=== PATIENT | female | born 1995 | race Caucasian/White ===

== ENCOUNTER → 2020-07-15 15:28 | Outpatient (BNVA) | payer SELFPAY | PROVIDERS: Visit Provider Nurse Practitioner Family | DX: D64.9 Anemia, unspecified (principal); R00.0 Tachycardia, unspecified; R53.83 Other fatigue; R20.0 Anesthesia of skin; R20.2 Paresthesia of skin | CPT/HCPCS: 80048; 82306; 82607; 83550; 84443; 85025 ==

== ENCOUNTER 2021-07-02 17:57 | Outpatient (CLI) | payer MEDICAID, SELFPAY ==
[2021-07-02 18:08] VITALS: BMI 26.9
[2021-07-02 18:13] VITALS: BP 119/78; PULSE 99; TEMP 36.3
== END 2021-07-02 18:45 | disposition home or self-care (01) ==
LOC: OPOB 17:57 → OBGYN 18:00
PROVIDERS: Visit Provider Family Medicine
DX: O26.899 Other specified pregnancy related conditions, unspecified trimester (principal); Z3A.00 Weeks of gestation of pregnancy not specified; N89.8 Other specified noninflammatory disorders of vagina
CPT/HCPCS: 59025; 83986; 99211

== ENCOUNTER 2021-07-09 02:21 | Inpatient (IN) | payer MEDICAID, SELFPAY ==
[2021-07-08 22:50] VITALS: RESP 16; BMI 26.4
[2021-07-08 23:03] VITALS: BP 139/88; PULSE 81
[2021-07-08 23:46] VITALS: BP 147/92; PULSE 71
[2021-07-09] VITALS (50 sets, daily range): BP systolic 97–215; BP diastolic 47–145; PULSE 60–97; RESP 15–17; TEMP 36.2–36.6; O2SAT 88–100; BMI 26.4
[2021-07-09] MEDS: ondansetron 2 mg/ML SDV 2 mL 4 MG IVP (02:53)
[2021-07-09] MEDS: dextrose 5%-lactated ringers 1,000 ML 125 ML IV (02:53)
[2021-07-09 03:00] LABS: Basophils # 0.1 10^3/uL (0.0-0.1); Basophils % 0.4 %; Eosinophils % 0.2 %; Hematocrit 35.3 % (37.0-47.0); Hemoglobin 11.8 g/dL (11.5-15.3); Lymphocytes # 2.9 10^3/uL (0.8-4.8); Lymphocytes % 22.8 %; Mean Corpuscular HGB Conc 33.4 g/dL (30.0-36.0); Mean Corpuscular Hemoglobin 28.5 pg (28.0-34.0); Mean Corpuscular Volume 85.3 fl (81-99); Mean Platelet Volume 12.8 fL (7.4-10.4); Monocytes # 0.8 10^3/uL (0.2-0.9); Monocytes % 6.2 %; Neutrophils % 69.8 %; Nucleated Red Blood Cells % 0 %; Platelet Count 196 10^3/cmm (130-400); Red Blood Count 4.14 10^6/uL (4.1-5.3); Red Cell Distribution Width 12.6 % (12.1-15.1); White Blood Count 12.6 10^3/uL (4.0-10.0)
[2021-07-09] MEDS: lactated ringers 1,000 ML 999 ML IV ×2 (06:15→08:49)
[2021-07-09] MEDS: oxytocin 30 UNIT/500 ML BAG IV (06:46)
--- NOTE | 2021-07-09 07:07 | PM.OPHPUD ---
Labor & Delivery H&P Update Date of Procedure: July 09, 2021 Date H&P Performed: 07/07/21 Admission Diagnosis: 25-year-old 2 para 1-0-0-1 at 38 weeks estimated gestational age arriving in active labor Planned procedure: Spontaneous vaginal delivery Other information: The patient is an otherwise healthy 25-year-old female who arrived to the hospital complaining of vaginal pressure and occasional contractions. After arriving to hospital she was found to have consistent contractions most of which she was not feeling, and was also making cervical change. Her has been otherwise a relatively unremarkable. Her blood type is O+. Antibody negative. She is rubella immune. She is GBS negative. Her glucose screen was negative. The remainder of her labs are within normal limits.
--- NOTE | 2021-07-09 07:18 | ANES.PREANE2 ---
Pre-Anesthetic Assessment Height/Weight: Height 1.65 m Weight 72.121 kg Temp Pulse Resp BP 97.4 F L 68 16 118/72 07/09/21 06:22 07/09/21 07:05 07/09/21 06:22 07/09/21 07:05 Preop Diagnosis: Planning of labor analgesia Labor epidural Familial anesthetic complications: None Was Beta Raf taken within 24 hours: N/A Was Clonidine taken within 24 hours: N/A Last intake: Full stomach Social No alcohol and No tobacco Exam alert, oriented x 3, clear to auscultation bilaterally and regular rate & rhythm Airway Submandibular: within normal limits Cervical ROM: within normal limits Mallampati: Class II Dentition: full History/ROS No significant history except as noted and No significant complaints Pulmonary Asthma (RAD) CV/HEM None reported None reported Hepatic None reported GI None reported Metabolic None reported Musc/skel None reported Neuropsych None reported Anesthetic Plan ASA status: 2 Anesthesia: Anesthesia Evaluation, Eval. for regional block, General and Regional (specify below) (Labor epidural) Other: I discussed with patient the risk and benefits of labor epidural including PDPH, hypotension, back pain/discomfort/bruising, catastrophic nerve injury including paralysis, abscess, hematoma, failed block, one sided block, and LAST. Patient consents to labor epidural and in case of emergency consents to general anesthesia. Risk of > 500 ml blood loss (7ml/kg in children): No Medications/Allergies Allergies Allergy/AdvReac Type Severity Reaction Status Date / Time shrimp Allergy Intermediate ALGY-Difficulty Verified 07/09/21 05:55 Breathing Current Medications Generic Name Dose Route Start Last Admin Trade Name Joesph PRN Reason Stop Dose Admin Dextrose/Lactated Ringer's 1,000 mls @ 125 mls/hr 07/09/21 02:30 07/09/21 02:53 Dextrose 5%-Lactated Ringers IV 125 mls/hr .Q8H KALYN Administration Lactated Ringer's 1,000 mls @ 999 mls/hr 07/09/21 06:14 07/09/21 06:15 Lactated Ringers IV 999 mls/hr .Q1H1M PRN Administration See label comments Oxytocin 30 unit in 500 mls @ 1 mls/hr 07/09/21 06:45 07/09/21 07:05 Pitocin IV 3 milliunit/min .Q24H KALYN 3 mls/hr Titration Protocol 1 MILLIUNIT/MIN Ondansetron HCl 4 mg 07/09/21 02:26 07/09/21 02:53 Ondansetron 2 Mg/Ml Sdv 2 Ml IVP 4 mg Q4H PRN Administration NAUSEA AND VOMITING PFSH Anesthesia Social History Smoking and tobacco status: former smoker Female Reproductive History Date of last menstrual period: 08/16/20 : 2 Data Anesthesia : 07/09/21 02:40 Short CBC 07/09/21 Range/Units 02:40 WBC 12.6 H (4.0-10.0) 10^3/uL Hgb 11.8 (11.5-15.3) g/dL Hct 35.3 L (37.0-47.0) % MCV 85.3 (81-99) fl Plt Count 196 (130-400) 10^3/cmm Neut % (Auto) 69.8 % Neut # (Auto) 8.80 H (1.8-7.7) 10^3/uL Cardiac Studies: No Data to Display
--- NOTE | 2021-07-09 08:27 | P.PCNOB_ITS ---
Delivery Note: Date of delivery: July 09, 2021 Pre-delivery diagnoses: 25-year-old 2 para 1-0-0-1 at 38 weeks estimated gestational age presenting in active labor Post-delivery diagnoses: Status post spontaneous vaginal delivery Procedure: Spontaneous vaginal delivery Delivering Physician: Severino Blair Estimated blood loss (mL): 50 Post Delivery Diagnoses: Sterilization consult: The patient desires to have a tubal ligation. I made the patient aware that because I will be leaving town, either my partner will do it, oral have to be done in 6 weeks. I would discuss her case with Dr. Ronquillo and she was here to schedule allows. I discussed the risks of bleeding, infection, and damage to intra-abdominal organs. We also discussed a 1/200 chance of becoming again as well as an increased risk of ectopic . She has no further questions, and is willing to proceed if Dr. Ronquillo is able to do the procedure. Pre-Delivery Course: The patient presented to the hospital in active labor. She progressed to 7 cm. An amniotomy was performed. An epidural was placed. Pitocin augmentation was placed. She progressed to complete without difficulty. Delivery: DELIVERY: The patient progressed to complete without difficulty. She delivered a female with a weight of 7 pounds 4 ounces with Apgars of 9, 9. The baby was delivered from the EARLE position and placed on the mother's abdomen. The cord was then clamped and cut. There was no nuchal cord. There was no meconium. The placenta and 3 vessel cord were delivered intact shortly thereafter. The perineum and vaginal vault were carefully examined. No lacerations were noted. Both the mother and the baby were in stable condition. Post-Delivery Status: Good A&P Assessment and plan (1) Spontaneous vaginal delivery: I anticipate routine care. If all goes well, she should build to be discharged home tomorrow. Status: Acute (2) Sterilization consult: The patient is hopeful that she can have a tubal ligation done during this hospitalization. If we are unable to do it during this hospitalization, we will set her up for a referral to have it done at 6 weeks. Status: Acute Coding Level of Care Code Acute Senior Data Integration Developer for g Fwd Diagnoses Spontaneous vaginal delivery O80 Sterilization consult Z30.09
[2021-07-09] MEDS: prenatal vitamin Capsule 1 CAP PO (09:51)
[2021-07-09] MEDS: ibuprofen 800 mg tablet PO ×3 (09:51→20:19)
[2021-07-09] MEDS: docusate sodium 100 mg Capsule PO (09:51)
--- NOTE | 2021-07-09 11:22 | PC.NURSE ---
pt up to bathroom with stand by assist. pt void 500mL. agustina care by pt. pad changed and pt dressed in own clothes. pt back to bed without assistance.
[2021-07-09] MEDS: benzocaine-menthol 78 gm Canister 1 SPRAY TOPICAL (15:00)
--- NOTE | 2021-07-09 15:24 | ANES.PROC ---
Anesthesia Procedures Procedure/Date: 07/09/21 Epidural: Time Out Performed: Yes Consents Signed: Procedure Consent Consent: from patient Lumbar Level: L4-L5 Epidural position: sitting Epidural procedure: sterile prep of area, 1% lidocaine to numb the area, 18 g needle, neg for paresthesia, test dose given, 1.5% xylocaine 1:200k epi, 0.2% Ropivacaine bolus ml, placed PCEA, no systemic response, sterile dressing applied and 0.2% Ropiavacaine @ mls/hr (13) Additional Comments: Cap, mask donned by staff in room. Patient sat up. Patient prepped and draped in usual sterile fashion with Chlorprep. 1% lidocaine skin wheel. Tuohy inserted with stylet. Ligament engaged. Using ROULA w/ saline technique epidural space found, catheter threaded. Negative aspiration. Test dose 1.5% lidocaine with epinephrine 1:200,000 total 3 cc. No response. Sterile dressing. Infusion started. Loss at? 5? , catheter at 11 . Tolerated well, 1 attempted, good block.?
--- NOTE | 2021-07-09 15:25 | ANE.PACU2 ---
Inpatient post-anesthesia follow up: Airway intact: Yes Vital signs: Temperature 97.4 F Pulse Rate 61 Respiratory Rate 17 Blood Pressure 133/75 Pulse Oximetry 100 Oxygen Delivery Me thod Room Air Oxygen Flow Rate Fraction of Inspir ed Oxygen Hydration adequate: Yes Nausea and vomiting: No Pain level: 1 Mental status: Baseline
--- NOTE | 2021-07-09 17:58 | PC.NURSE ---
Pt ambulated to OB-10 without assistance. Oriented to room/call light. Proud parent pack and feeding log shown.
[2021-07-09 22:17] LABS: Hematocrit 34.9 % (37.0-47.0); Hemoglobin 11.3 g/dL (11.5-15.3); Mean Corpuscular HGB Conc 32.4 g/dL (30.0-36.0); Mean Corpuscular Hemoglobin 27.9 pg (28.0-34.0); Mean Corpuscular Volume 86.2 fl (81-99); Mean Platelet Volume 13.2 fL (7.4-10.4); Platelet Count 180 10^3/cmm (130-400); Red Blood Count 4.05 10^6/uL (4.1-5.3); Red Cell Distribution Width 12.5 % (12.1-15.1); White Blood Count 12.9 10^3/uL (4.0-10.0)
[2021-07-09] MEDS: simethicone 80 mg Chew PO (22:33)
[2021-07-10] VITALS (13 sets, daily range): BP systolic 94–126; BP diastolic 43–86; PULSE 53–79; RESP 14–16; TEMP 36.7–36.8; O2SAT 96–97
[2021-07-10] MEDS: lactated ringers 1,000 ML 999 ML IV (06:29)
[2021-07-10] MEDS: citric acid-sodium citrate 30 mL UDC PO (07:28)
[2021-07-10] MEDS: metoclopramide 5 mg/mL SDV 2 mL 10 MG IVP (07:28)
[2021-07-10] MEDS: famotidine 20 mg/2 mL INJ IVP (07:28)
--- NOTE | 2021-07-10 07:30 | ANES.PREANE2 ---
Pre-Anesthetic Assessment Height/Weight: Height 1.65 m Weight 72.121 kg Temp Pulse Resp BP Pulse Ox 97.2 F L 57 L 14 101/64 97 07/09/21 16:54 07/10/21 04:02 07/10/21 04:02 07/10/21 04:02 07/10/21 04:02 Preop Diagnosis: desired sterilization Operation Date: 07/10/21 07:30 Proposed Procedures p Post Bilateral Tubal Ligation(Bilateral) - Sarah Ronquillo MD Familial anesthetic complications: None Was Beta Raf taken within 24 hours: N/A Was Clonidine taken within 24 hours: N/A Social No alcohol and No tobacco Exam alert, oriented x 3, clear to auscultation bilaterally and regular rate & rhythm Airway Submandibular: within normal limits Cervical ROM: within normal limits Mallampati: Class I Dentition: full History/ROS No significant complaints Pulmonary None reported CV/HEM None reported None reported Hepatic None reported GI None reported Metabolic None reported Musc/skel None reported Neuropsych None reported Anesthetic Plan ASA status: 1 Anesthesia: Anesthesia Evaluation and Regional (specify below) (spinal) Other: We discussed risk and benefits of spinal anesthesia vs general anesthesia in the peripartum period including infection, paralysis/catastrophic nerve injury, back bruising/pain, PDPH, conversion to general in case of spinal failure, intraoperative and PONV, life threatening allergic reaction, post operative ICU admission requiring prolonged intubation, stroke, heart attack. Patients consents to spinal. Risk of > 500 ml blood loss (7ml/kg in children): No Medications/Allergies Allergies Allergy/AdvReac Type Severity Reaction Status Date / Time shrimp Allergy Intermediate ALGY-Difficulty Verified 07/09/21 05:55 Breathing Current Medications Generic Name Dose Route Start Last Admin Trade Name Freq PRN Reason Stop Dose Admin Benzocaine 1 spray 07/09/21 08:38 07/09/21 15:00 Benzocaine-Menthol 78 Gm Canister TOPICAL 1 can PRN PRN Administration PAIN Docusate Sodium 100 mg 07/09/21 09:00 07/09/21 19:01 Docusate Sodium 100 Mg Capsule PO Not Given BID KALYN Ibuprofen 800 mg 07/09/21 09:00 07/09/21 20:19 Ibuprofen 800 Mg Tablet PO 800 mg TID KALYN Administration Multivit/Folic Acid/Iron 1 cap 07/09/21 09:00 07/09/21 09:51 Vitamin Capsule PO 1 cap DAILY KALYN Administration Simethicone 80 mg 07/09/21 22:24 07/09/21 22:33 Simethicone 80 Mg Chew PO 80 mg Q4H PRN Administration FLATULENCE PFSH Anesthesia Social History Smoking and tobacco status: former smoker Female Reproductive History Date of last menstrual period: 08/16/20 : 2 Data Anesthesia : 07/09/21 22:00 Short CBC 07/09/21 07/09/21 Range/Units 02:40 22:00 WBC 12.6 H 12.9 H (4.0-10.0) 10^3/uL Hgb 11.8 11.3 L (11.5-15.3) g/dL Hct 35.3 L 34.9 L (37.0-47.0) % MCV 85.3 86.2 (81-99) fl Plt Count 196 180 (130-400) 10^3/cmm Neut % (Auto) 69.8 % Neut # (Auto) 8.80 H (1.8-7.7) 10^3/uL Cardiac Studies: No Data to Display
--- NOTE | 2021-07-10 07:40 | PC.NURSE ---
Pt ambulating to OR for PP tubal
[2021-07-10] MEDS: lidocaine 2% INJ 20 mL INJECTION (08:26)
--- NOTE | 2021-07-10 08:55 | PM.OP ---
Operative Report Date of procedure: July 10, 2021 Pre-op diagnosis: Preop Diagnosis desired sterilization Procedure done: bilateral tubal ligation Specimens removed/disposition: Segments of right and left fallopian tubes Surgeon: Sarah Ronquillo MD Estimated blood loss: Scant IV fluids: 1400 Complications: None Procedure: After informed consent the patient was taken to the OR where spinal anesthesia was administered. She was prepped and draped in normal sterile fashion in dorsal supine position. After adequate anesthesia was verified a curvilinear infraumbilical incision was made and carried through to the underlying layer of fascia bluntly using a hemostat. The fascia was then grasped with Allis clamps and entered sharply using the Metzenbaums. The peritoneum was then entered bluntly using a hemostat. The left fallopian tube was then grasped with a Nallely and brought into the operative field. Fimbria were identified. A distal portion of the tube was ligated and excised. A segment of the tube was sent to pathology. Tubal ostia were visualized. The cut portions of the tube were coagulated using the Bovie and then returned to the abdomen. The right fallopian tube was then grasped with a Nallely and brought into the operative field. Fimbria were identified. A distal portion of the tube was ligated and excised. A segment of the tube was sent to pathology. Tubal ostia were visualized. The cut portions of the tube were coagulated using the Bovie and after hemostasis was verified they were returned to the abdomen. The peritoneum and fascia was then reapproximated using 0 Vicryl in a running fashion. The skin was then reapproximated using 4-0 Vicryl in a running fashion. 10 mL of 2% lidocaine was injected circumferentially around the incision site. Steri-Strips and a pressure bandage were applied and patient went to recovery in good condition.
--- NOTE | 2021-07-10 08:59 | P.DS_ITS ---
Discharge Providers Date of Admission: 07/09/21 02:21 Date of Discharge: July 10, 2021 Attending Provider at Admission: Severino Blair MD Attending Provider at Discharge: Severino Blair MD Diagnoses at Discharge Discharge Diagnosis (1) Spontaneous vaginal delivery: Status: Acute (2) Sterilization consult: Status: Acute Reason for Visit Reason for Visit: Contractions / Back Pain Hospital Course Hospital Course This is a 25-year-old G2 now P2 who had a normal spontaneous vaginal delivery of a viable female infant. On day #1 the patient underwent a bilateral tubal ligation. There were no complications of the procedure. She was ambulating, tolerating a regular diet, had good pain control and average vaginal bleeding. Physical Exam Const: COMMON NORMALS: no acute distress, patient oriented x3 and alert HENMT: COMMON NORMALS: normocephalic HEAD & SCALP: normocephalic Eye: COMMON NORMALS: Equal, round and reactive pupils present and EOMs intact bilaterally PUPIL: Yes Equal, round and reactive pupils present Resp: COMMON NORMALS: normal respiratory effort and clear to auscultation bilaterally AUSCULTATION: clear to auscultation bilaterally Cardio: COMMON NORMALS: regular rate and regular rhythm RATE: regular rate RHYTHM: regular rhythm GI: COMMON NORMALS: Soft to palpation and non-tender PALPATION: Yes Soft to palpation OTHER: fundus firm and U-2 Extremity: NARRATIVE EXTREMITY EXAM: no calf tenderness, slight nonpitting edema Neuro: COMMON NORMALS: patient oriented x3 SENSORIUM/ORIENTATION: Yes alert Discharge Data Studies Completed and Pending Pending at discharge Category Date Time Status Complete Blood Count w/Auto Routine Lab 07/10/21 08:15 Uncollected Laboratory Results WBC 12.9 10^3/uL (4.0-10.0) H 07/09/21 22:00 RBC 4.05 10^6/uL (4.1-5.3) L 07/09/21 22:00 Hgb 11.3 g/dL (11.5-15.3) L 07/09/21 22:00 Hct 34.9 % (37.0-47.0) L 07/09/21 22:00 MCV 86.2 fl (81-99) 07/09/21 22:00 MCH 27.9 pg (28.0-34.0) L 07/09/21 22:00 MCHC 32.4 g/dL (30.0-36.0) 07/09/21 22:00 RDW 12.5 % (12.1-15.1) 07/09/21 22:00 Plt Count 180 10^3/cmm (130-400) 07/09/21 22:00 MPV 13.2 fL (7.4-10.4) H 07/09/21 22:00 Neut % (Auto) 69.8 % 07/09/21 02:40 Lymph % (Auto) 22.8 % 07/09/21 02:40 Woodward % (Auto) 6.2 % 07/09/21 02:40 Eos % (Auto) 0.2 % 07/09/21 02:40 Baso % (Auto) 0.4 % 07/09/21 02:40 Neut # (Auto) 8.80 10^3/uL (1.8-7.7) H 07/09/21 02:40 Lymph # (Auto) 2.9 10^3/uL (0.8-4.8) 07/09/21 02:40 Woodward # (Auto) 0.8 10^3/uL (0.2-0.9) 07/09/21 02:40 Eos # (Auto) 0.0 10^3/uL (0.0-0.8) 07/09/21 02:40 Baso # (Auto) 0.1 10^3/uL (0.0-0.1) 07/09/21 02:40 Nucleated RBC % (auto) 0 % 07/09/21 02:40 Nucleated RBCs # 0.0 /100WBC 07/09/21 02:40 Procedures Performed Bilateral tubal ligation Vitals Last Vital Signs Temp 97.2 F L 07/09/21 16:54 Pulse 57 L 07/10/21 04:02 Resp 14 07/10/21 04:02 BP 101/64 07/10/21 04:02 Pulse Ox 97 07/10/21 04:02 Discharge Plan Discharge Patient Disposition: Home Condition: Stable Prescriptions: New ibuprofen 800 mg Tablet 800 mg PO TID PRN (Reason: Abdominal Discomfort) Qty: 40 0RF hydrocodone-acetaminophen 5-325 mg Tablet 1 - 2 tab PO Q6H PRN (Reason: Abdominal Pain) Qty: 8 0RF Discharge Orders: Discharge Order (Routine); Ordered 07/10/21 Ordered By: Sarah Ronquillo Referrals: Severino Blair MD [Physician] - 1 week (inscsion check) Discharge Diet: Usual diet Discharge Activity: Limit activity as instructed Patient Instructions: Opioid Safety Activity Restrictions/Additional Instructions: Keep wound clean and dry. Leave steri-strips in place unless they remain moist. Discharge Attestations Time Spent in Discharge Care*: less than 30 min Quality Metrics Clinical Quality Measures [ No reported AMI, CVA or VTE this stay] Coding Level of Care Code Acute Chg FW DC note Diagnoses Spontaneous vaginal delivery O80 Sterilization consult Z30
[2021-07-10] MEDS: prenatal vitamin Capsule 1 CAP PO (09:23)
[2021-07-10] MEDS: ibuprofen 800 mg tablet PO ×2 (09:24→14:42)
[2021-07-10] MEDS: docusate sodium 100 mg Capsule PO (09:24)
[2021-07-10] MEDS: simethicone 80 mg Chew PO (09:52)
[2021-07-10 10:09] LABS: Basophils # 0.1 10^3/uL (0.0-0.1); Basophils % 0.5 %; Eosinophils # 0.1 10^3/uL (0.0-0.8); Eosinophils % 0.6 %; Hematocrit 38.5 % (37.0-47.0); Hemoglobin 11.3 g/dL (11.5-15.3); Lymphocytes # 2.1 10^3/uL (0.8-4.8); Lymphocytes % 21.5 %; Mean Corpuscular HGB Conc 29.4 g/dL (30.0-36.0); Mean Corpuscular Hemoglobin 27.8 pg (28.0-34.0); Mean Corpuscular Volume 94.8 fl (81-99); Monocytes # 0.6 10^3/uL (0.2-0.9); Monocytes % 5.6 %; Neutrophils # 7.04 10^3/uL (1.8-7.7); Neutrophils % 71.2 %; Nucleated Red Blood Cells % 0 %; Platelet Count 151 10^3/cmm (130-400); Red Blood Count 4.06 10^6/uL (4.1-5.3); Red Cell Distribution Width 12.8 % (12.1-15.1); White Blood Count 9.9 10^3/uL (4.0-10.0)
--- NOTE | 2021-07-10 12:25 | ANE.PACU2 ---
Inpatient post-anesthesia follow up: Airway intact: Yes Vital signs: Temperature 97.2 F Pulse Rate 53 Respiratory Rate 15 Blood Pressure 96/52 Pulse Oximetry 97 Oxygen Delivery Me thod Room Air Oxygen Flow Rate Fraction of Inspir ed Oxygen Hydration adequate: Yes Nausea and vomiting: No Pain level: 2 Mental status: Baseline
--- NOTE | 2021-07-10 13:47 | PC.NURSE ---
Prior to surgery note [id number] Dr Pabon in room discussing plan of care with pt and signing consents. [id number] Dr Ronquillo in with pt discussing surgery with pt. [id number] Pre-op meds given. Pt began to feel funny in the head and arms feeling tingly and numb. Vitals taken BP127/88, HR61. SPO2 98%. 0735 Pt up to restroom prior to surgery. 0740 Pt ambulating to OR 0743 OR room time
== END 2021-07-10 14:45 | disposition home or self-care (01) | DRG 798 ==
LOC: OBGYN 02:24 → OPOB 07-10 07:34
PROVIDERS: Family Medicine; Admitting Provider Family Medicine; Visit Provider Family Medicine
PROC: 0U570ZZ Destruction of Bilateral Fallopian Tubes, Open Approach (ICD-10-PCS; CPT 58605; principal; 2021-07-10 07:30)
DX: O80 Encounter for full-term uncomplicated delivery (principal); Z37.0 Single live birth; Z3A.38 38 weeks gestation of pregnancy; Z30.2 Encounter for sterilization
CPT/HCPCS: 12345; 36415; 59409; 83986; 85025; 85027; 88302; J2250; J2405; J2704; J2765; J2795; J3010; J3490

== ENCOUNTER 2021-07-14 22:45 | Outpatient (CLI) | payer MEDICAID, SELFPAY ==
[2021-07-14] VITALS (8 sets, daily range): BP systolic 131–161; BP diastolic 83–104; PULSE 44–56; RESP 16
[2021-07-14] MEDS: acetaminophen 500 mg Tablet 1000 MG PO (23:08)
[2021-07-14 23:09] LABS: Basophils % 0.5 %; Eosinophils # 0.2 10^3/uL (0.0-0.8); Hematocrit 39.9 % (37.0-47.0); Hemoglobin 12.9 g/dL (11.5-15.3); Lymphocytes % 22.5 %; Mean Corpuscular HGB Conc 32.3 g/dL (30.0-36.0); Mean Corpuscular Hemoglobin 27.7 pg (28.0-34.0); Mean Corpuscular Volume 85.8 fl (81-99); Mean Platelet Volume 11.7 fL (7.4-10.4); Monocytes # 0.5 10^3/uL (0.2-0.9); Monocytes % 5.2 %; Neutrophils # 6.15 10^3/uL (1.8-7.7); Neutrophils % 69.5 %; Nucleated Red Blood Cells % 0 %; Platelet Count 226 10^3/cmm (130-400); Red Blood Count 4.65 10^6/uL (4.1-5.3); Red Cell Distribution Width 12.7 % (12.1-15.1); White Blood Count 8.9 10^3/uL (4.0-10.0)
[2021-07-14 23:20] LABS: Urine Appearance Clear (CLEAR); Urine Color Orange (Yellow); pH Urine 6.5 (5-7)
[2021-07-14 23:21] LABS: Add Urine Microscopic? YES; Bilirubin Urine Neg (Negative); Blood Urine 3+ (Negative); Glucose Urine UA Norm (Normal); Ketones Urine Negative (Negative); Leukocyte Esterase Urine Trace (Negative); Nitrate Urine Negative (Negative); Protein Urine Trace (Negative); RBC Urine 15-25 /hpf (0-2); Urobilinogen Urine Norm (Negative)
[2021-07-14 23:22] LABS: Add Urine Culture? Yes; Bacteria Urine TRACE /hpf; Mucus Urine TRACE /hpf
[2021-07-14 23:35] LABS: Alanine Aminotransferase 12 U/L (0-33); Albumin Level 3.7 g/dL (3.5-5.2); Alkaline Phosphatase 89 IU/L (35-105); Anion Gap 15.1 (5-19); Aspartate Amino Transferase 14 U/L (0-32); Blood Urea Nitrogen 12 mg/dL (6-20); Calcium 9.4 mg/dL (8.5-10.5); Carbon Dioxide 26 mmol/L (22-29); Chloride 102 mmol/L (98-107); Globulin 3.4 g/dL (1.3-4.6); Glomerular Filtration Rate 122.8 mL/min (90-130); Glucose 102 mg/dL (65-115); Osmolality Calculated 288 mOsm/kg (285-295); Potassium 4.1 mmol/L (3.5-5.1); Sodium 139 mmol/L (136-145); Total Bilirubin 0.2 mg/dL (0.15-1.2); Total Protein 7.1 g/dL (6.6-8.7); Uric Acid 6.3 mg/dL (2.4-5.7)
[2021-07-14 23:36] LABS: Urine Creatinine 23 mg/dL (28-217); Urine Protein Random 8 mg/dL
[2021-07-14 23:41] LABS: UPRO/UCREAT Ratio 0.35 mg/mg CR
== END 2021-07-14 23:55 | disposition home or self-care (01) ==
LOC: OPOB 22:46 → OBGYN 23:51
PROVIDERS: Visit Provider Family Medicine
DX: O16.5 Unspecified maternal hypertension, complicating the puerperium (principal)
CPT/HCPCS: 36415; 80053; 81001; 82570; 84156; 84550; 85025; 99211